=== PATIENT | female | born 1990 | race Caucasian/White ===

== ENCOUNTER 2018-02-10 18:25 | Emergency (ER) | payer SELFPAY ==
[~2018-02-10] VITALS: Ht 154.9 cm; Wt 47.7 kg
[2018-02-10] MEDS ORDERED: ACETAMINOPHEN 325 MG TABLET PO ONE (18:45)
[2018-02-10 18:57] LABS: APPEARANCE,URINE CLOUDY (CLEAR); BILIRUBIN,URINE NEGATIVE (NEGATIVE); GLUCOSE, URINE (UA) NEGATIVE (NEGATIVE); KETONES,URINE NEGATIVE (NEGATIVE); LEUKOCYTE ESTERASE ,URINE LARGE (NEGATIVE); NITRATE,URINE POSITIVE (NEGATIVE); OCCULT BLOOD,URINE LARGE (NEGATIVE); PH,URINE 7.5 (5.0-8.0); PROTEIN,URINE SEE CONFIRM (NEGATIVE)
[2018-02-10 19:09] LABS: BASOPHILS % (AUTO) 0.4 % (0.0-2.0); EOSINOPHILS % (AUTO) 0.6 % (1.0-6.0); HEMATOCRIT 39.7 % (36-46); HEMOGLOBIN 13.6 g/dL (12.0-16.0); LYMPHOCYTES # (AUTO) 0.7 K/uL (1.0-4.8); MEAN CORPUSCULAR HEMOGLOBIN 28.9 pg (26.0-34.0); MEAN CORPUSCULAR HGB CONC 34.3 G/dL (31.0-37.0); MEAN CORPUSCULAR VOLUME 84 fL (80-100); MONOCYTES % (AUTO) 6.7 % (2.0-9.0); NEUTROPHILS # (AUTO) 12.6 K/uL (1.8-7.7); NEUTROPHILS % (AUTO) 87.3 % (40.0-70.0); PLATELET COUNT (AUTO) 211 K/uL (150-450); RED BLOOD CELL COUNT(AUTO) 4.72 MIL/uL (4.00-5.20); RED CELL DISTRIBUTION WIDTH 12.8 % (11.5-14.5)
[2018-02-10 19:20] LABS: SULFOSALICYLIC ACID,URINE 3+ (Negative)
[2018-02-10 19:21] LABS: RBC,URINE 26-50 /HPF (0-2); WBC,URINE >100 /HPF (0-5)
[2018-02-10 19:22] LABS: BACTERIA,URINE Few /HPF (None Seen); SQUAMOUS EPITHELIAL CELL,UR Many /LPF (None Seen)
[2018-02-10] MEDS ORDERED: CeFAZolin 1 GM/DEXTROSE 50 ML IV ONE (21:15)
[2018-02-10] MEDS ORDERED: SODIUM CHLORIDE 0.9% 1,000 ML IV ONE (21:15)
[2018-02-10 21:19] LABS: ANION GAP 11 mmol/L (8-16); CALCIUM, TOTAL 8.8 mg/dL (8.8-10.5); CARBON DIOXIDE 26 mmol/L (22-29); CHLORIDE 103 mmol/L (98-107); CREATININE 0.94 mg/dL (0.60-1.30); GLOMERULAR FILTR. RATE CALC > 60 mL/min (>60); GLUCOSE,RANDOM 105 mg/dL (70-110); POTASSIUM 3.1 mmol/L (3.5-5.1); SODIUM SERUM 140 mmol/L (136-145); UREA NITROGEN, BLOOD 10 mg/dL (7-18)
[2018-02-10 21:27] LABS: ALANINE AMINOTRANSFERASE 37 U/L (12-78); ALBUMIN 3.9 g/dL (3.4-5.0); ALKALINE PHOSPHATASE 71 U/L (46-116); ASPARTATE AMINOTRANSFERASE 34 U/L (15-37); BILIRUBIN,TOTAL 0.7 mg/dL (0.1-1.0); TOTAL PROTEIN, SERUM 7.6 g/dL (6.4-8.2)
[2018-02-10 22:21] VITALS: BP 111/68
== END 2018-02-10 22:28 | disposition home or self-care (01) ==
LOC: EMS 18:28
DX: N93.9 Abnormal uterine and vaginal bleeding, unspecified (principal); N39.0 Urinary tract infection, site not specified; N93.8 Other specified abnormal uterine and vaginal bleeding
CPT/HCPCS: 36415; 80053; 81001; 83605; 84703; 85025; 87077; 87086; 87186; 96365; 99284; J0690; J7030